=== PATIENT | male | born 1995 | race American Indian/Alaskan Native ===

== ENCOUNTER 2022-01-28 11:26 | Emergency (ER) | payer OTHER ==
[2022-01-28 11:50] VITALS: BP 160/71
[2022-01-28] MEDS ORDERED: LORazepam 1 MG TAB PO ONE (14:33)
[2022-01-28] MEDS ORDERED: ZIPRASIDONE MESYLATE 20 MG VIAL IM ONE ×2 (14:47→15:03)
--- NOTE | 2022-01-28 14:58 | Emergency Department Report ---
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 Dr Iyer [phone], he needs to be involved with psych dispo - Related Data Previous Rx's Medication Instructions Recorded Last Taken Type Escitalopram Oxalate [Lexapro] 5 mg PO QDAY 30 Days #30 01/29/22 Unknown Rx OLANzapine [ZyPREXA] 5 mg PO BID 30 Days #60 tablet 01/29/22 Unknown Rx hydrOXYzine PAMOATE [Vistaril] 25 mg PO Q6HR PRN 30 Days #30 01/29/22 Unknown Rx capsule Allergies Allergy/AdvReac Type Severity Reaction Status Date / Time No Known Allergies Allergy Unverified 01/28/22 17:31 ED Review of Systems ROS: Stated complaint: PANIC ATTACK Other details as noted in HPI ED Past Medical Hx - Medications Home Medications: Home Medications Medication Instructions Recorded Confirmed Last Taken Type Escitalopram Oxalate [Lexapro] 5 mg PO QDAY 30 Days #30 01/29/22 Unknown Rx OLANzapine [ZyPREXA] 5 mg PO BID 30 Days #60 tablet 01/29/22 Unknown Rx hydrOXYzine PAMOATE [Vistaril] 25 mg PO Q6HR PRN 30 Days #30 01/29/22 Unknown Rx capsule ED Physical Exam - General Limitations: No Limitations ED Course Vital Signs 01/28/22 01/28/22 01/28/22 11:44 16:30 20:54 Temperature 98.4 F Pulse Rate 57 L Respiratory 18 Rate Blood Pressure 160/71 [Right] O2 Sat by Pulse 100 98 99 Oximetry ED Medical Decision Making - Medical Decision Making spoke with his cousin , 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 ED Disposition Clinical Impression: Psychosis, Agitation Disposition: 01 HOME / SELF CARE / HOMELESS Is pt being admited?: No Does the pt Need Aspirin: No Condition: Stable Additional Instructions: Professional and Agency Contacts To help [facility](21/04) [place] Crisis Line: Suicide Prevention Line: Crisis Text Line: Text START to 600495 Emergency: 911 Outpatient COMMUNITY Behavioral Health Resources: [place]: [facility] [address] [place], [place] [address] [place]: [facility] [address] [place] [address] [place]: [facility] [address] [place] [address] Friday thru Friday - 8am - 5pm [place]: [facility] Address: [address] [place] [address] [place]: [facility] Address: [address] [place] [address] Friday thru Friday- 7am-2pm [facility] Address: [address] [place] [address] Friday thru Friday: 8:30AM-5PM In case of an emergency, please contact the following numbers: [place] Crisis and Access Line: Number: Crisis Text Line: (Text START) Number: 055650 Suicide Prevention Line: Number: Emergency Number: 911 SUBSTANCE ABUSE PROGRAMS: [facility]: Location: [place], [place] [employer] Address: [address] [place] [address] [facility]: Address: [address] [place] [address] [facility]: Address: [address] [place] [address] [facility]: Address: [address] [place] [address] [facility] Address: [address] [facility], [place] [address]. Please contact above numbers to attempt placement into free based program. Medicaid Programs: [facility]: Address: [address] [facility], [place] [address] [facility]: Address: [address] [place], [place] [id number] Prescriptions: Escitalopram Oxalate [Lexapro] 5 mg PO QDAY 30 Days #30 hydrOXYzine PAMOATE [Vistaril] 25 mg PO Q6HR PRN 30 Days #30 capsule PRN Reason: Anxiety OLANzapine [ZyPREXA] 5 mg PO BID 30 Days #60 tablet Referrals: PRIMARY CARE, [Primary Care Provider] - 3-5 Days
--- NOTE | 2022-01-29 10:29 | Consultation ---
History of Present Illness - Reason for Consult Consult date: 01/29/22 Reason for consult: mental health evaluation - History of Present Psychiatric Illness The patient is a 27 year old male with history of bipolar, and anxiety disorder. In my encounter with the patient, he is calm, alert and oriented x2. The patient states " I was at the airport I could not make it into the plane." When asking why , he states " It's difficult to explain." The patient denies any current suicidal/homicidal ideation and denies hallucinations. PAST PSYCHIATRIC HISTORY Diagnoses: Bipolar, anxiety Suicide attempts or Self-harm behavior: Denies Prior psychiatric hospitalizations: Yes Substance Abuse history: Denies Previous psychiatric medications tried: Zyprexa, Lexapro, Vistaril Outpatient treatment:Yes- PAST MEDICAL HISTORY: none reported Family Psychiatric History: None reported or documented SOCIAL HISTORY Marital Status: Single Living Arrangements: Lives with father Employment Status: employed Access to guns/weapons: Denies Education: Some college History of Abuse: none reported Legal History: none reported REVIEW OF SYSTEMS Constitutional: Negative for weight loss ENT: Negative for stridor Respiratory: Negative for cough or hemoptysis All other systems reviewed and are negative MENTAL STATUS EXAMINATION General Appearance and Behavior: Age appropriate, good hygiene, wearing appropriate clothes, poor eye contact, cooperative polite with questioning. Cooperation: Participating/engaged, guarded Psychomotor Behavior: unremarkable and within normal limits Mood: OK Affect and affective range: congruent with mood Thought Process: goal directed Thought Content: reality oriented Speech: Normal volume, Regular rate and rhythm, Intellectual Functioning: Average Suicidal Ideation: Denies Homicidal Ideation: Denies Hallucinations: Denies Delusions: None Impulse Control: Normal Insight and Judgment: Limited insight and judgment, Memory: Normal, Attention: Normal, Orientation: Alert, oriented, Assessment and Plan (1) Hx of Bipolar Current Visit: Yes Status: Acute Treatment Start Zyprexa 5mg po BID Start Lexapro Start Vistaril 25mg po every 6 hours as needed Sitter: Per primary Medical: Per primary Disposition: Do not Recommend acute inpatient psychiatric treatment. Case staffed with Dr. Fong Will sign off. Thank you Medications and Allergies Medications and Allergies Allergies Allergy/AdvReac Type Severity Reaction Status Date / Time No Known Allergies Allergy Unverified 01/28/22 17:31 Home Medications Medication Instructions Recorded Confirmed Last Taken Type Escitalopram Oxalate [Lexapro] 5 mg PO QDAY 30 Days #30 01/29/22 Unknown Rx OLANzapine [ZyPREXA] 5 mg PO BID 30 Days #60 tablet 01/29/22 Unknown Rx hydrOXYzine PAMOATE [Vistaril] 25 mg PO Q6HR PRN 30 Days #30 01/29/22 Unknown Rx capsule Mental Status Exam - Vital signs Last Vital Signs Temp 98.4 F 01/28/22 11:44 Pulse 57 L 01/28/22 11:44 Resp 18 01/28/22 11:44 BP 160/71 01/28/22 11:44 Pulse Ox 99 01/28/22 20:54 Results All other labs normal.
[2022-01-29] MEDS ORDERED: hydrOXYzine PAMOATE 25 MG CAP PO SCH (11:00)
[2022-01-29] MEDS ORDERED: ESCITALOPRAM 10 MG TAB PO SCH (11:00)
--- NOTE | 2022-01-29 11:27 | Event Note ---
Date: 01/29/22 pt has been medically cleared , assessed by psytch , don;t recommend psych admission will start meds with OP follow up
== END 2022-01-29 16:45 | disposition home or self-care (01) ==
LOC: EEVIPCON 11:26 → ED 11:26
DX: F29 Unspecified psychosis not due to a substance or known physiological condition (principal); R45.1 Restlessness and agitation; Z79.899 Other long term (current) drug therapy
CPT/HCPCS: 96372; 99284; J3486